=== PATIENT | female | born 1970 | race Asian ===

== ENCOUNTER 2020-06-12 05:17 | Inpatient (IN) | payer MEDICAID, OTHER ==
[~2020-06-12] VITALS: Ht 157.5 cm; Wt 54.6 kg
[2020-06-12 05:58] LABS: BASOPHILS % (AUTO) 0.5 % (0.0-2.0); EOSINOPHILS % (AUTO) 1.7 % (1.0-6.0); HEMATOCRIT 37.9 % (36-46); HEMOGLOBIN 12.4 g/dL (12.0-16.0); LYMPHOCYTES # (AUTO) 2.1 K/uL (1.0-4.8); LYMPHOCYTES % (AUTO) 36.9 % (22.0-44.0); MEAN CORPUSCULAR HEMOGLOBIN 27.3 pg (26.0-34.0); MEAN CORPUSCULAR HGB CONC 32.6 G/dL (31.0-37.0); MEAN CORPUSCULAR VOLUME 84 fL (80-100); MONOCYTES # (AUTO) 0.5 K/uL (0.1-1.0); MONOCYTES % (AUTO) 8.5 % (2.0-9.0); NEUTROPHILS % (AUTO) 52.4 % (40.0-70.0); PLATELET COUNT (AUTO) 217 K/uL (150-450); RED BLOOD CELL COUNT(AUTO) 4.53 MIL/uL (4.00-5.20); RED CELL DISTRIBUTION WIDTH 13.3 % (11.5-14.5)
[2020-06-12 06:05] LABS: ANION GAP 6 mmol/L (8-16); CALCIUM, TOTAL 9.3 mg/dL (8.8-10.5); CARBON DIOXIDE 31 mmol/L (22-29); CHLORIDE 103 mmol/L (98-107); GLOMERULAR FILTR. RATE CALC 58 mL/min (>60); GLUCOSE,RANDOM 95 mg/dL (70-110); POTASSIUM 3.8 mmol/L (3.5-5.1); SODIUM SERUM 140 mmol/L (136-145); UREA NITROGEN, BLOOD 19 mg/dL (7-18)
[2020-06-12 06:11] LABS: ALANINE AMINOTRANSFERASE 38 U/L (12-78); ALBUMIN 3.7 g/dL (3.4-5.0); ALKALINE PHOSPHATASE 59 U/L (46-116); ASPARTATE AMINOTRANSFERASE 22 U/L (15-37); BILIRUBIN,TOTAL 0.4 mg/dL (0.1-1.0); TOTAL PROTEIN, SERUM 8.1 g/dL (6.4-8.2)
[2020-06-12 14:37] LABS: APPEARANCE,URINE CLEAR (CLEAR); BILIRUBIN,URINE NEGATIVE (NEGATIVE); GLUCOSE, URINE (UA) NEGATIVE (NEGATIVE); KETONES,URINE NEGATIVE (NEGATIVE); LEUKOCYTE ESTERASE ,URINE NEGATIVE (NEGATIVE); NITRATE,URINE NEGATIVE (NEGATIVE); OCCULT BLOOD,URINE NEGATIVE (NEGATIVE); PROTEIN,URINE NEGATIVE (NEGATIVE); UROBILINOGEN,URINE 0.2 mg/dL (<=1.0)
[2020-06-12 14:45] LABS: AMPHET/METH SCREEN,URINE NEGATIVE (NEGATIVE); BARBITURATE SCREEN, URINE NEGATIVE (NEGATIVE); BENZODIAZEPINES SCREEN,URINE NEGATIVE (NEGATIVE); CANNABINOID SCREEN,URINE NEGATIVE (NEGATIVE); COCAINE SCREEN,URINE NEGATIVE (NEGATIVE); METHADONE SCREEN, URINE NEGATIVE (NEGATIVE); OPIATE SCREEN,URINE NEGATIVE (NEGATIVE)
[2020-06-12 14:47] LABS: PHENCYCLIDINE SCREEN,URINE NEGATIVE (NEGATIVE)
[2020-06-12] MEDS ORDERED: ZOLPIDEM TARTRATE 10 MG TABLET PO PRN (15:00)
[2020-06-12] MEDS ORDERED: HALOPERIDOL 5 MG TABLET PO PRN (15:00)
[2020-06-12 15:03] LABS: BACTERIA,URINE None Seen /HPF (None Seen); RBC,URINE None Seen /HPF (0-2); WBC,URINE None Seen /HPF (0-5)
[2020-06-12] MEDS: LORazepam 2 MG TABLET PO PRN (17:45)
[2020-06-12 18:14] VITALS: BP 116/75
[2020-06-12] MEDS ORDERED: ONDANSETRON HCL 4 MG TABLET PO PRN (21:45)
[2020-06-12] MEDS ORDERED: IBUPROFEN 400 MG TABLET PO PRN (21:45)
[2020-06-12] MEDS ORDERED: MAGNESIUM HYDROXIDE SUSPENSION 30 ML UDCUP PO PRN (21:45)
[2020-06-12] MEDS ORDERED: ACETAMINOPHEN 325 MG TABLET PO PRN (21:45)
[2020-06-12] MEDS ORDERED: NICOTINE 14 MG/24 HOUR PATCH TD PRN (21:45)
[2020-06-12] MEDS ORDERED: LOPERAMIDE HCL 2 MG CAPSULE PO PRN (21:45)
[2020-06-12] MEDS ORDERED: ALBUTEROL SULFATE HFA 90 MCG/PUFF 8 GM INHALER IH PRN (21:45)
[2020-06-12] MEDS ORDERED: PETROLATUM,WHITE 28 GM JELLY TP PRN (21:45)
[2020-06-12] MEDS ORDERED: CloNIDine HCL 0.1 MG TABLET PO PRN (21:45)
[2020-06-12] MEDS ORDERED: DOCUSATE SODIUM 100 MG CAPSULE PO PRN (21:45)
[2020-06-12] MEDS ORDERED: MAG HYDROX/AL HYDROX/SIMETH ES 30 ML SUSPENSION UDCUP PO PRN (21:45)
[2020-06-12] MEDS ORDERED: GuaiFENesin/D-METHORPHAN [SUGAR-FREE] 200-20MG/10 ML SYRUP UDCUP PO PRN (21:45)
[2020-06-13 00:59] VITALS: BP 111/72
[2020-06-13] MEDS ORDERED: NICOTINE 14 MG/24 HOUR PATCH TD PRN (07:45)
[2020-06-13] MEDS ORDERED: ACETAMINOPHEN 325 MG TABLET PO PRN (07:45)
[2020-06-13] MEDS ORDERED: MAG HYDROX/AL HYDROX/SIMETH ES 30 ML SUSPENSION UDCUP PO PRN (07:45)
[2020-06-13] MEDS ORDERED: LOPERAMIDE HCL 2 MG CAPSULE PO PRN (07:45)
[2020-06-13] MEDS ORDERED: ONDANSETRON HCL 4 MG TABLET PO PRN (07:45)
[2020-06-13] MEDS ORDERED: IBUPROFEN 400 MG TABLET PO PRN (07:45)
[2020-06-13] MEDS ORDERED: GuaiFENesin/D-METHORPHAN [SUGAR-FREE] 200-20MG/10 ML SYRUP UDCUP PO PRN (07:45)
[2020-06-13] MEDS ORDERED: PETROLATUM,WHITE 28 GM JELLY TP PRN (07:45)
[2020-06-13] MEDS ORDERED: ALBUTEROL SULFATE HFA 90 MCG/PUFF 8 GM INHALER IH PRN (07:45)
[2020-06-13] MEDS ORDERED: MAGNESIUM HYDROXIDE SUSPENSION 30 ML UDCUP PO PRN (07:45)
[2020-06-13] MEDS ORDERED: CloNIDine HCL 0.1 MG TABLET PO PRN (07:45)
[2020-06-13] MEDS ORDERED: DOCUSATE SODIUM 100 MG CAPSULE PO PRN (07:45)
[2020-06-13 08:18] LABS: CHOL/HDL RATIO 5.4 (3.9-5.7)
[2020-06-13 08:30] VITALS: BP 108/62
[2020-06-13] MEDS: LORazepam 2 MG TABLET PO PRN (11:09)
[2020-06-13] MEDS: ClonazePAM 0.5 MG TABLET PO SCH (16:48)
[2020-06-13] MEDS: BENZTROPINE MESYLATE 0.5 MG TABLET PO SCH (16:52)
[2020-06-13] MEDS: HALOPERIDOL 1 MG TABLET PO SCH (16:52)
[2020-06-13 17:33] VITALS: BP 103/66
[2020-06-14 05:16] VITALS: BP 107/60
[2020-06-14 08:09] VITALS: BP 117/76
[2020-06-14] MEDS: ClonazePAM 0.5 MG TABLET PO SCH ×3 (08:14→17:01)
[2020-06-14] MEDS: HALOPERIDOL 1 MG TABLET PO SCH ×2 (08:14→17:02)
[2020-06-14] MEDS: BENZTROPINE MESYLATE 0.5 MG TABLET PO SCH ×2 (08:15→17:02)
[2020-06-14] MEDS ORDERED: DULoxetine HCL 20 MG CAPSULE PO SCH (09:00)
[2020-06-14 16:11] VITALS: BP 105/68
[2020-06-14 22:05] VITALS: BP 104/59
== END 2020-06-14 22:00 | disposition short-term general hospital (02) | DRG 885 ==
LOC: EMS 05:17 → B3A 15:05
PROVIDERS: ADMIT Psychiatry & Neurology Psychiatry; ATTEND Psychiatry & Neurology Psychiatry
DX: F29 Unspecified psychosis not due to a substance or known physiological condition (principal); R45.851 Suicidal ideations; E78.5 Hyperlipidemia, unspecified; E78.00 Pure hypercholesterolemia, unspecified; G47.00 Insomnia, unspecified; K59.00 Constipation, unspecified; F41.1 Generalized anxiety disorder; Z81.8 Family history of other mental and behavioral disorders; Z90.710 Acquired absence of both cervix and uterus
CPT/HCPCS: G0480

== ENCOUNTER 2020-06-14 22:33 | Observation (INO) | payer MEDICAID, OTHER ==
[~2020-06-14] VITALS: Ht 157.5 cm; Wt 54.9 kg
[2020-06-15 02:14] LABS: BASOPHILS % (AUTO) 0.2 % (0.0-2.0); EOSINOPHILS % (AUTO) 2.4 % (1.0-6.0); HEMATOCRIT 34.7 % (36-46); HEMOGLOBIN 11.2 g/dL (12.0-16.0); LYMPHOCYTES # (AUTO) 2.7 K/uL (1.0-4.8); LYMPHOCYTES % (AUTO) 41.5 % (22.0-44.0); MEAN CORPUSCULAR HEMOGLOBIN 27.1 pg (26.0-34.0); MEAN CORPUSCULAR HGB CONC 32.2 G/dL (31.0-37.0); MEAN CORPUSCULAR VOLUME 84 fL (80-100); MONOCYTES # (AUTO) 0.6 K/uL (0.1-1.0); MONOCYTES % (AUTO) 9.8 % (2.0-9.0); NEUTROPHILS % (AUTO) 46.1 % (40.0-70.0); PLATELET COUNT (AUTO) 195 K/uL (150-450); RED BLOOD CELL COUNT(AUTO) 4.12 MIL/uL (4.00-5.20); RED CELL DISTRIBUTION WIDTH 13.5 % (11.5-14.5)
[2020-06-15 02:25] LABS: ANION GAP 6 mmol/L (8-16); CALCIUM, TOTAL 8.5 mg/dL (8.8-10.5); CARBON DIOXIDE 28 mmol/L (22-29); CHLORIDE 103 mmol/L (98-107); CREATININE 0.94 mg/dL (0.60-1.30); GLOMERULAR FILTR. RATE CALC > 60 mL/min (>60); GLUCOSE,RANDOM 95 mg/dL (70-110); POTASSIUM 3.6 mmol/L (3.5-5.1); SODIUM SERUM 137 mmol/L (136-145); UREA NITROGEN, BLOOD 17 mg/dL (7-18)
[2020-06-15] MEDS ORDERED: 0.9% SODIUM CHLORIDE 10 ML SYRINGE IVP PRN (03:15)
[2020-06-15] MEDS ORDERED: ACETAMINOPHEN 325 MG TABLET PO PRN (03:15)
[2020-06-15 05:20] VITALS: BP 104/61
[2020-06-15 07:32] VITALS: BP 99/51
[2020-06-15 11:19] VITALS: BP 115/57
[2020-06-15 15:03] VITALS: BP 123/61
[2020-06-15 19:30] VITALS: BP 88/58
[2020-06-15] MEDS ORDERED: ALBUTEROL SULFATE 2.5 MG/0.5 ML NEB SOLUTION NEB PRN (20:30)
[2020-06-15] MEDS ORDERED: MAGNESIUM HYDROXIDE SUSPENSION 30 ML UDCUP PO PRN (20:30)
[2020-06-15] MEDS ORDERED: IPRATROPIUM BROMIDE 0.5 MG/2.5 ML NEB SOLUTION NEB PRN (20:30)
[2020-06-15] MEDS ORDERED: ONDANSETRON HCL 4 MG/2 ML VIAL IVP PRN (20:30)
[2020-06-15] MEDS ORDERED: ZOLPIDEM TARTRATE 5 MG TABLET PO PRN (20:30)
[2020-06-15] MEDS ORDERED: BISACODYL 10 MG RECTAL RECTAL SUPPOSITORY PR PRN (20:30)
[2020-06-15 22:15] VITALS: BP 108/79
[2020-06-16] MEDS: HEPARIN SODIUM,PORCINE 5,000 UNITS/ML VIAL SQ SCH ×4 (00:12→23:53)
[2020-06-16 00:15] VITALS: BP 104/64
[2020-06-16 06:00] VITALS: BP 97/56
[2020-06-16 07:54] VITALS: BP 94/68
[2020-06-16] MEDS: ACETAMINOPHEN 325 MG TABLET PO PRN ×2 (09:27→20:21)
[2020-06-16 20:10] VITALS: BP 105/53
[2020-06-16 23:53] VITALS: BP 108/55
[2020-06-17] MEDS: ACETAMINOPHEN 325 MG TABLET PO PRN (04:36)
[2020-06-17 08:00] VITALS: BP 104/53
[2020-06-17] MEDS: HEPARIN SODIUM,PORCINE 5,000 UNITS/ML VIAL SQ SCH (08:23)
[2020-06-17] MEDS ORDERED: IOVERSOL 350 MG/ML 100 ML VIAL ONE (10:59)
[2020-06-17] MEDS ORDERED: SODIUM CHLORIDE 0.9% 0 ML ONE (10:59)
[2020-06-17] MEDS ORDERED: IBUPROFEN 400 MG TABLET PO PRN (11:00)
[2020-06-18] MEDS ORDERED: CLON-592 PO (12:33)
[2020-06-18] MEDS ORDERED: HALO.5 PO (12:33)
[2020-06-18] MEDS ORDERED: DULO20CA27 PO (12:33)
[2020-06-18] MEDS ORDERED: BENZ0.5T44 PO (12:33)
== END 2020-06-17 13:00 | disposition home or self-care (01) ==
LOC: EMS 22:33 → 6N 06-15 03:18 → UNDOADMIN 06-15 03:18 → 6N 06-15 05:41 → UNDOADMIN 06-15 11:22 → INTOOBSV 06-15 11:22 → UNDODISIN 06-17 13:00
PROVIDERS: ADMIT Hospitalist; ATTEND Hospitalist
DX: F25.1 Schizoaffective disorder, depressive type (principal); Z20.828 Contact with and (suspected) exposure to other viral communicable diseases; E78.00 Pure hypercholesterolemia, unspecified; Z90.710 Acquired absence of both cervix and uterus; Z91.013 Allergy to seafood
CPT/HCPCS: 36415; 80048; 85025; 87081; 87426; 96372 ×2; 99219; 99284; J1644 ×2; U0003; J7050

== ENCOUNTER 2020-06-17 09:15 | Inpatient (IN) | payer MEDICAID ==
[~2020-06-17] VITALS: Ht 157.5 cm; Wt 56.9 kg
[2020-06-17] MEDS ORDERED: LORazepam 2 MG TABLET PO PRN (12:15)
[2020-06-17] MEDS ORDERED: HALOPERIDOL 5 MG TABLET PO PRN (12:15)
[2020-06-17] MEDS ORDERED: ZOLPIDEM TARTRATE 10 MG TABLET PO PRN (12:15)
[2020-06-17] MEDS: ClonazePAM 0.5 MG TABLET PO SCH ×2 (15:00→16:55)
[2020-06-17 16:04] VITALS: BP 108/66
[2020-06-17] MEDS: BENZTROPINE MESYLATE 0.5 MG TABLET PO SCH (16:56)
[2020-06-17] MEDS: HALOPERIDOL 1 MG TABLET PO SCH (17:01)
[2020-06-17] MEDS: DOCUSATE SODIUM 100 MG CAPSULE PO SCH (21:08)
[2020-06-18 00:50] VITALS: BP 101/61
[2020-06-18 08:00] VITALS: BP 106/68
[2020-06-18] MEDS ORDERED: GuaiFENesin/D-METHORPHAN [SUGAR-FREE] 200-20MG/10 ML SYRUP UDCUP PO PRN (08:15)
[2020-06-18] MEDS ORDERED: ALBUTEROL SULFATE HFA 90 MCG/PUFF 8 GM INHALER IH PRN (08:15)
[2020-06-18] MEDS ORDERED: ACETAMINOPHEN 325 MG TABLET PO PRN (08:15)
[2020-06-18] MEDS ORDERED: NICOTINE 14 MG/24 HOUR PATCH TD PRN (08:15)
[2020-06-18] MEDS ORDERED: MAGNESIUM HYDROXIDE SUSPENSION 30 ML UDCUP PO PRN (08:15)
[2020-06-18] MEDS ORDERED: CloNIDine HCL 0.1 MG TABLET PO PRN (08:15)
[2020-06-18] MEDS ORDERED: MAG HYDROX/AL HYDROX/SIMETH ES 30 ML SUSPENSION UDCUP PO PRN (08:15)
[2020-06-18] MEDS ORDERED: DOCUSATE SODIUM 100 MG CAPSULE PO PRN (08:15)
[2020-06-18] MEDS ORDERED: ONDANSETRON HCL 4 MG TABLET PO PRN (08:15)
[2020-06-18] MEDS ORDERED: LOPERAMIDE HCL 2 MG CAPSULE PO PRN (08:15)
[2020-06-18] MEDS ORDERED: PETROLATUM,WHITE 28 GM JELLY TP PRN (08:15)
[2020-06-18] MEDS ORDERED: IBUPROFEN 400 MG TABLET PO PRN (08:15)
[2020-06-18] MEDS: ClonazePAM 0.5 MG TABLET PO SCH ×2 (08:58→12:16)
[2020-06-18] MEDS: DOCUSATE SODIUM 100 MG CAPSULE PO SCH (08:59)
[2020-06-18] MEDS: HALOPERIDOL 1 MG TABLET PO SCH (08:59)
[2020-06-18] MEDS: BENZTROPINE MESYLATE 0.5 MG TABLET PO SCH (08:59)
[2020-06-18] MEDS ORDERED: DULoxetine HCL 20 MG CAPSULE PO SCH (09:00)
[2020-06-18] MEDS ORDERED: HALO.5 PO (12:33)
[2020-06-18] MEDS ORDERED: CLON-592 PO (12:33)
[2020-06-18] MEDS ORDERED: BENZ0.5T44 PO (12:33)
[2020-06-18] MEDS ORDERED: DULO20CA27 PO (12:33)
== END 2020-06-18 17:00 | disposition home or self-care (01) | DRG 750 ==
LOC: B3A 13:30 → UNDOADMIN 13:30 → B3A 13:32
PROVIDERS: ADMIT Psychiatry & Neurology Psychiatry; ATTEND Psychiatry & Neurology Psychiatry
DX: F20.9 Schizophrenia, unspecified (principal); E78.5 Hyperlipidemia, unspecified; K59.00 Constipation, unspecified; D64.9 Anemia, unspecified
CPT/HCPCS: 87081; Z7610

== ENCOUNTER 2021-04-30 12:13 | Inpatient (IN) | payer MEDICAID, OTHER ==
[~2021-04-30] VITALS: Ht 157.5 cm; Wt 54.5 kg
[~2021-04-30 12:13] MED LIST: BENZ0.5T44 PO; DULO20CA27 PO; HALO.5 PO
[2021-04-30 14:08] LABS: BASOPHILS % (AUTO) 0.5 % (0.0-2.0); EOSINOPHILS % (AUTO) 1.5 % (1.0-6.0); HEMATOCRIT 37.1 % (36-46); HEMOGLOBIN 11.7 g/dL (12.0-16.0); LYMPHOCYTES # (AUTO) 2.4 K/uL (1.0-4.8); LYMPHOCYTES % (AUTO) 34.3 % (22.0-44.0); MEAN CORPUSCULAR HEMOGLOBIN 26.8 pg (26.0-34.0); MEAN CORPUSCULAR HGB CONC 31.6 G/dL (31.0-37.0); MEAN CORPUSCULAR VOLUME 85 fL (80-100); MONOCYTES # (AUTO) 0.5 K/uL (0.1-1.0); MONOCYTES % (AUTO) 6.5 % (2.0-9.0); NEUTROPHILS # (AUTO) 4.1 K/uL (1.8-7.7); NEUTROPHILS % (AUTO) 57.2 % (40.0-70.0); PLATELET COUNT (AUTO) 218 K/uL (150-450); RED BLOOD CELL COUNT(AUTO) 4.38 MIL/uL (4.00-5.20); RED CELL DISTRIBUTION WIDTH 14.1 % (11.5-14.5)
[2021-04-30 14:19] LABS: ANION GAP 8 mmol/L (8-16); CALCIUM, TOTAL 9.1 mg/dL (8.8-10.5); CARBON DIOXIDE 28 mmol/L (22-29); CHLORIDE 106 mmol/L (98-107); CREATININE 0.78 mg/dL (0.60-1.30); GLOMERULAR FILTR. RATE CALC > 60 mL/min (>60); GLUCOSE,RANDOM 83 mg/dL (70-110); POTASSIUM 3.4 mmol/L (3.5-5.1); SODIUM SERUM 142 mmol/L (136-145); UREA NITROGEN, BLOOD 14 mg/dL (7-18)
[2021-04-30 14:24] LABS: ALANINE AMINOTRANSFERASE 21 U/L (12-78); ALBUMIN 3.7 g/dL (3.4-5.0); ALKALINE PHOSPHATASE 68 U/L (46-116); ASPARTATE AMINOTRANSFERASE 20 U/L (15-37); BILIRUBIN,TOTAL 0.4 mg/dL (0.1-1.0); TOTAL PROTEIN, SERUM 7.9 g/dL (6.4-8.2)
[2021-04-30 14:34] LABS: COVID AG,FIA SOURCE NASOPHARYNGEAL
[2021-04-30 14:45] LABS: AMPHET/METH SCREEN,URINE NEGATIVE (NEGATIVE); BARBITURATE SCREEN, URINE NEGATIVE (NEGATIVE); BENZODIAZEPINES SCREEN,URINE NEGATIVE (NEGATIVE); CANNABINOID SCREEN,URINE NEGATIVE (NEGATIVE); COCAINE SCREEN,URINE NEGATIVE (NEGATIVE); METHADONE SCREEN, URINE NEGATIVE (NEGATIVE); OPIATE SCREEN,URINE NEGATIVE (NEGATIVE)
[2021-04-30 14:49] LABS: PHENCYCLIDINE SCREEN,URINE NEGATIVE (NEGATIVE)
[2021-04-30] MEDS ORDERED: POTASSIUM CHLORIDE 10% 40 MEQ/30 ML LIQUID UDCUP PO ONE (15:15)
[2021-04-30] MEDS ORDERED: HALOPERIDOL 5 MG TABLET PO PRN (16:00)
[2021-04-30] MEDS ORDERED: LORazepam 2 MG TABLET PO PRN (16:00)
[2021-04-30] MEDS ORDERED: ZOLPIDEM TARTRATE 10 MG TABLET PO PRN (16:00)
[2021-04-30 21:09] VITALS: BP 129/75
[2021-05-01 06:37] LABS: CHOL/HDL RATIO 4.3 (3.9-5.7); FREE T4 (FREE THYROXINE) 1.03 ng/dL (0.76-1.46); POTASSIUM 3.8 mmol/L (3.5-5.1); THYROID STIMULATING HORMONE 1.02 uIU/mL (0.36-3.74)
[2021-05-01 08:15] VITALS: BP 115/72
[2021-05-01] MEDS ORDERED: IBUPROFEN 400 MG TABLET PO PRN (12:15)
[2021-05-01] MEDS ORDERED: LOPERAMIDE HCL 2 MG CAPSULE PO PRN (12:15)
[2021-05-01] MEDS ORDERED: ALBUTEROL SULFATE HFA 90 MCG/PUFF 8 GM INHALER IH PRN (12:15)
[2021-05-01] MEDS ORDERED: CloNIDine HCL 0.1 MG TABLET PO PRN (12:15)
[2021-05-01] MEDS ORDERED: MAG HYDROX/AL HYDROX/SIMETH ES 30 ML SUSPENSION UDCUP PO PRN (12:15)
[2021-05-01] MEDS ORDERED: NICOTINE 14 MG/24 HOUR PATCH TD PRN (12:15)
[2021-05-01] MEDS ORDERED: MAGNESIUM HYDROXIDE SUSPENSION 30 ML UDCUP PO PRN (12:15)
[2021-05-01] MEDS ORDERED: PETROLATUM,WHITE 28 GM JELLY TP PRN (12:15)
[2021-05-01] MEDS ORDERED: ONDANSETRON HCL 4 MG TABLET PO PRN (12:15)
[2021-05-01] MEDS ORDERED: ACETAMINOPHEN 325 MG TABLET PO PRN (12:15)
[2021-05-01] MEDS ORDERED: GuaiFENesin/D-METHORPHAN [SUGAR-FREE] 200-20MG/10 ML SYRUP UDCUP PO PRN (12:15)
[2021-05-01] MEDS ORDERED: DOCUSATE SODIUM 100 MG CAPSULE PO PRN (12:15)
[2021-05-01] MEDS: DULoxetine HCL 20 MG CAPSULE PO SCH (12:24)
[2021-05-01 16:00] VITALS: BP 102/63
[2021-05-01] MEDS: HALOPERIDOL 1 MG TABLET PO SCH (16:21)
[2021-05-01] MEDS: BENZTROPINE MESYLATE 0.5 MG TABLET PO SCH (16:21)
[2021-05-02 08:14] VITALS: BP 104/70
[2021-05-02] MEDS: HALOPERIDOL 1 MG TABLET PO SCH ×2 (08:42→16:01)
[2021-05-02] MEDS: BENZTROPINE MESYLATE 0.5 MG TABLET PO SCH ×2 (08:42→16:01)
[2021-05-02] MEDS: DULoxetine HCL 20 MG CAPSULE PO SCH (08:43)
[2021-05-02 17:06] VITALS: BP 115/78
[2021-05-03] MEDS: DULoxetine HCL 20 MG CAPSULE PO SCH (08:14)
[2021-05-03] MEDS: BENZTROPINE MESYLATE 0.5 MG TABLET PO SCH ×2 (08:14→16:21)
[2021-05-03] MEDS: HALOPERIDOL 1 MG TABLET PO SCH ×2 (08:14→16:21)
[2021-05-03 08:29] VITALS: BP 95/57
[2021-05-04 08:42] VITALS: BP 98/56
[2021-05-04] MEDS: DULoxetine HCL 20 MG CAPSULE PO SCH (09:14)
[2021-05-04] MEDS: HALOPERIDOL 1 MG TABLET PO SCH (09:14)
[2021-05-04] MEDS: BENZTROPINE MESYLATE 0.5 MG TABLET PO SCH ×2 (09:14→16:21)
[2021-05-04 16:00] VITALS: BP 101/59
[2021-05-04] MEDS: HALOPERIDOL 5 MG TABLET PO SCH (16:25)
[2021-05-05 08:32] VITALS: BP 103/60
[2021-05-05] MEDS: BENZTROPINE MESYLATE 0.5 MG TABLET PO SCH ×2 (08:41→16:16)
[2021-05-05] MEDS: DULoxetine HCL 30 MG CAPSULE PO SCH (08:41)
[2021-05-05] MEDS: HALOPERIDOL 5 MG TABLET PO SCH ×2 (08:42→16:16)
[2021-05-05 17:16] VITALS: BP 104/52
[2021-05-06] MEDS: BENZTROPINE MESYLATE 0.5 MG TABLET PO SCH ×2 (09:43→16:14)
[2021-05-06] MEDS: DULoxetine HCL 30 MG CAPSULE PO SCH (09:43)
[2021-05-06] MEDS: HALOPERIDOL 5 MG TABLET PO SCH ×2 (09:44→16:14)
[2021-05-06 09:46] VITALS: BP 96/63
[2021-05-06 16:00] VITALS: BP 114/67
[2021-05-07 08:46] VITALS: BP 100/56
[2021-05-07] MEDS: BENZTROPINE MESYLATE 0.5 MG TABLET PO SCH (09:21)
[2021-05-07] MEDS: DULoxetine HCL 30 MG CAPSULE PO SCH (09:21)
[2021-05-07] MEDS: HALOPERIDOL 5 MG TABLET PO SCH (09:22)
[2021-05-07] MEDS ORDERED: DULO30CA96 PO (14:23)
[2021-05-07] MEDS ORDERED: HALO5TAB2 PO (14:23)
[2021-05-07 16:34] LABS: COVID AG,FIA SOURCE NASOPHARYNGEAL
== END 2021-05-07 15:34 | disposition home or self-care (01) | DRG 750 ==
LOC: EMS 12:16 → 3EC 15:51
PROVIDERS: ADMIT Psychiatry & Neurology Child & Adolescent Psychiatry; ATTEND Psychiatry & Neurology Child & Adolescent Psychiatry
DX: F25.1 Schizoaffective disorder, depressive type (principal); R45.851 Suicidal ideations; D64.9 Anemia, unspecified; E78.00 Pure hypercholesterolemia, unspecified; E78.5 Hyperlipidemia, unspecified; E87.6 Hypokalemia; F41.9 Anxiety disorder, unspecified; Z20.822 Contact with and (suspected) exposure to COVID-19; G89.29 Other chronic pain; Z90.710 Acquired absence of both cervix and uterus
CPT/HCPCS: 80053; 80061; 84132; 84439; 84443; 85025; 99285; G0480

== ENCOUNTER 2021-09-24 16:48 | Emergency (ER) | payer MEDICAID, OTHER ==
[~2021-09-24] VITALS: Ht 157.5 cm; Wt 64.5 kg
[~2021-09-24 16:48] MED LIST changes: -DULO20CA27 PO; +DULO30CA89 PO; -HALO.5 PO; +HALO5TAB2 PO
[2021-09-24] MEDS ORDERED: IBUP-2759 PO (16:55)
[2021-09-24 17:58] VITALS: BP 124/59
[2021-09-24] MEDS ORDERED: TraMADol HCL 50 MG TABLET PO ONE (18:00)
== END 2021-09-24 20:36 | disposition home or self-care (01) ==
LOC: EMS 17:14
DX: S20.219A Contusion of unspecified front wall of thorax, initial encounter (principal); E78.00 Pure hypercholesterolemia, unspecified; W18.39XA Other fall on same level, initial encounter; Y93.89 Activity, other specified; Y92.89 Other specified places as the place of occurrence of the external cause; Y99.8 Other external cause status
CPT/HCPCS: 71045; 99283